=== PATIENT | female | born 1945 | race Caucasian/White ===

== ENCOUNTER 2016-04-20 12:03 | Observation (INO) | payer MEDICARE, BC ==
[~2016-04-20] VITALS: Ht 165.1 cm; Wt 60.0 kg
[~2016-04-20 12:03] MED LIST: ATEN1TAB74 PO; CALTTAB5 PO; FIORINAL2 PO; HYDR-3366 PO; LEVE500 PO; LIPI10TA PO; MULTTAB67 PO; ZOCO40TA PO
[2016-04-20 12:07] VITALS: BP 136/63; PULSE 70; RESP 24; O2SAT 98
[2016-04-20] MEDS ORDERED: MECL25CH CHEW (12:29)
[2016-04-20 12:35] VITALS: BP 147/70; PULSE 60; RESP 16; TEMP 97.7; O2SAT 100
--- NOTE | 2016-04-20 12:41 | PD ---
HPI Chief Complaint: Numbness/Tingling Time Seen by Provider: 12:30 Travel History International Travel<30 days: No Contact w/Intl Traveler<30days: No Traveled to known affect area: No History of Present Illness HPI 71-year-old female with history of migraines, SDH of unclear etiology that was drained in November of last year, here for evaluation of double vision and left arm and leg numbness. Symptoms started at around 11:15 PM while driving. Double vision lasted several minutes and has since resolved. Left arm and leg numbness has been persistent. No focal deficits or weakness. No headache. She has had a cough recently. No fevers or chills. No chest pain or dyspnea. No abdominal pain. PFSH Past Medical History Arthritis: Yes Cancer: No High Cholesterol: Yes Diabetes: No Diminished Hearing: No Glaucoma: No Hepatitis: No Hiatal Hernia: No Hypertension: No Musculoskeletal: Yes (OSTEOPENIA) Immunizations Current: Yes Migraines: Yes Thyroid Disease: No Influenza Vaccination: Yes Menopausal: Yes Tubal Ligation: Yes Past Surgical History Abdominal Surgery: Yes (APPENDECTOMY ) Appendectomy: Yes Cardiac Surgery: No Endocrine Surgery: No Eye Surgery: Yes (BILATERAL CATARACTS) Genitourinary Surgery: No Gynecologic Surgery: Yes (TUBAL LIGATION ) Pacemaker: No Thoracic Surgery: No Other Surgery: Yes (brain surgery ) Social History Alcohol Use: No Tobacco Use: No Substance Use: No Allergies-Medications (Allergen,Severity, Reaction): Coded Allergies: Codeine (Verified Allergy, Severe, VERTIGO, VOMITING, 04/20/16) Darvon (Verified Allergy, Severe, VERTIGO, 04/20/16) Morphine (Verified Allergy, Unknown, 04/20/16) Uncoded Allergies: DARVOCET (Allergy, Severe, 01/04/16) Reported Meds & Prescriptions Reported Meds & Active Scripts Active Reported Meclizine (Meclizine HCl) 25 Mg Chew 25 Mg CHEW DIRECTED PRN Fiorinal (Butalbital/Aspirin/Caffeine) 50-325-40 Mg Cap 1 Cap PO Q6HR PRN Do not exceed 6 capsules/day. Caltrate 600 (Calcium Carbonate) 1,500 Mg Tab 1 Tab PO DAILY Multiple Vitamin 1 Tab 1 Tab PO DAILY Tenormin (Atenolol) 50 Mg Tab 50 Mg PO DAILY Zocor (Simvastatin) 40 Mg Tab 20 Mg PO HS Review of Systems Except as stated in HPI: all other systems reviewed are Neg Physical Exam Narrative GENERAL: Well-developed, well-nourished, comfortable, no acute distress. Awake , alert, GCS 15. SKIN: Warm and dry. No rash. HEAD: Atraumatic. Normocephalic. EYES: Pupils equal and round. No scleral icterus. No injection or drainage. ENT: Mucous membranes pink and moist. NECK: Trachea midline. No JVD. CARDIOVASCULAR: Regular rate and rhythm. RESPIRATORY: No accessory muscle use. Clear to auscultation. Breath sounds equal bilaterally. GASTROINTESTINAL: Abdomen soft, non-tender, nondistended. MUSCULOSKELETAL: No obvious deformities. No clubbing. No cyanosis. No edema. NEUROLOGICAL: Awake and alert. No obvious cranial nerve deficits. Motor grossly within normal limits. Normal speech. No focal deficits. Normal finger- nose-finger test bilaterally. No pronator drift. PSYCHIATRIC: Appropriate mood and affect; insight and judgment normal. Data Data Last Documented VS Vital Signs Date Time Temp Pulse Resp B/P Pulse Ox O2 Delivery O2 Flow Rate FiO2 04/20/16 12:35 97.7 60 16 147/70 100 Room Air Orders Electrocardiogram (04/20/16 12:37) Prothrombin Time / Inr (Pt) (04/20/16 12:37) Act Partial Throm Time (Ptt) (04/20/16 12:37) Complete Blood Count With Diff (04/20/16 12:37) Comprehensive Metabolic Panel (04/20/16 12:37) Urinalysis - C+S If Indicated (04/20/16 12:37) Ct Brain W/O Iv Contrast(Rout) (04/20/16 12:37) Ecg Monitoring (04/20/16 12:37) Iv Access Insert/Monitor (04/20/16 12:37) Oximetry (04/20/16 12:37) Sodium Chloride 0.9% Flush (Ns Flush) (04/20/16 12:45) Blood Glucose (04/20/16 12:45) Ckmb (Isoenzyme) Profile (04/20/16 12:52) Troponin I (04/20/16 12:52) Aspirin Ec (Ecotrin Ec) (04/20/16 14:30) Us Leg Venous Doppler (04/20/16 ) Labs Laboratory Tests Test 04/20/16 04/20/16 12:45 13:30 White Blood Count 4.4 TH/MM3 Red Blood Count 4.67 MIL/MM3 Hemoglobin 13.0 GM/DL Hematocrit 39.8 % Mean Corpuscular Volume 85.2 FL Mean Corpuscular Hemoglobin 27.9 PG Mean Corpuscular Hemoglobin 32.7 % Concent Red Cell Distribution Width 13.6 % Platelet Count 251 TH/MM3 Mean Platelet Volume 8.3 FL Neutrophils (%) (Auto) 60.4 % Lymphocytes (%) (Auto) 27.0 % Monocytes (%) (Auto) 10.2 % Eosinophils (%) (Auto) 1.6 % Basophils (%) (Auto) 0.8 % Neutrophils # (Auto) 2.6 TH/MM3 Lymphocytes # (Auto) 1.2 TH/MM3 Monocytes # (Auto) 0.4 TH/MM3 Eosinophils # (Auto) 0.1 TH/MM3 Basophils # (Auto) 0.0 TH/MM3 CBC Comment DIFF FINAL Differential Comment Prothrombin Time 11.2 SEC Prothromb Time International 1.0 RATIO Ratio Activated Partial 22.9 SEC Thromboplast Time Sodium Level 138 MEQ/L Potassium Level 3.8 MEQ/L Chloride Level 103 MEQ/L Carbon Dioxide Level 24.2 MEQ/L Anion Gap 11 MEQ/L Blood Urea Nitrogen 16 MG/DL Creatinine 1.01 MG/DL Estimat Glomerular Filtration 54 ML/MIN Rate Random Glucose 128 MG/DL Calcium Level 8.9 MG/DL Total Bilirubin 0.6 MG/DL Aspartate Amino Transf 18 U/L (AST/SGOT) Alanine Aminotransferase 41 U/L (ALT/SGPT) Alkaline Phosphatase 60 U/L Total Creatine Kinase 66 U/L Troponin I LESS THAN 0.02 NG/ML Total Protein 7.0 GM/DL Albumin 4.0 GM/DL Urine Color YELLOW Urine Turbidity CLEAR Urine pH 8.5 Urine Specific [place] 1.019 Urine Protein TRACE mg/dL Urine Glucose (UA) NEG mg/dL Urine Ketones 40 mg/dL Urine Occult Blood NEG Urine Nitrite NEG Urine Bilirubin NEG Urine Urobilinogen LESS THAN 2.0 MG/DL Urine Leukocyte Esterase TRACE Urine RBC 1 /hpf Urine WBC 1 /hpf Urine Squamous Epithelial 1 /hpf Cells Microscopic Urinalysis Comment CULT NOT INDICATED MDM Medical Decision Making Medical Screen Exam Complete: Yes Emergency Medical Condition: Yes Medical Record Reviewed: Yes Interpretation(s) EKG: Sinus, rate 59, normal axis, normal intervals, slight ST depressions in inferior, anterior, and lateral leads. No ST segment elevations. Differential Diagnosis CVA, ICH, electrolyte abnormality, UTI Narrative Course Vital signs reviewed. CBC is unremarkable. CMP is remarkable for creatinine 1.01, GFR 54, otherwise unremarkable. Cardiac enzymes are negative. UA shows 40 ketones, otherwise within normal limits, not suggestive of UTI. CT head: Prior right calvarial surgery. Intracranial lesion normal. Patient was given a dose of aspirin after CT head findings resulted. She was made aware of all findings. She is still having some numbness in her left arm and leg. Again she no longer has double vision. There is no focal deficits or focal weakness on exam. After she was made aware of all findings she was complaining of pain behind her left knee. Exam shows mild tenderness behind left knee. No calf tenderness or swelling. No thigh tenderness or swelling. All compartments in the left lower extremity are supple. No history of DVT or PE. I told the patient I will order a lower extremity ultrasound to make sure she does not have a DVT. The patient will be admitted for further treatment and evaluation of paresthesias/episode of blurry vision/possible TIA/CVA. Case discussed with hospitalist Dr. Bell who will admit the patient to his service. Diagnosis Primary Impression: Paresthesias Admitting Information Admitting Physician Requests: Leo Baxter MD Apr 20, 2016 12:41
[2016-04-20] MEDS ORDERED: SODIUM CHLORIDE 0.9% FLUSH 5 ML FLUSH IVF PRN ×2 (12:45→14:45)
[2016-04-20 13:00] LABS: AUTOMATED NEUTROPHIL # 2.6 TH/MM3 (1.8-7.7); BASOPHIL % 0.8 % (0.0-2.0); EOSINOPHIL # 0.1 TH/MM3 (0-0.4); EOSINOPHIL % 1.6 % (0.0-4.0); HEMATOCRIT 39.8 % (35.0-46.0); HEMO FLAGS DIFF FINAL; LYMPHOCYTE # 1.2 TH/MM3 (1.0-4.8); MEAN CELL VOLUME 85.2 FL (80.0-100.0); MEAN CORPUSCULAR HEMOGLOBIN 27.9 PG (27.0-34.0); MEAN CORPUSCULAR HGB CONC 32.7 % (32.0-36.0); MONO % 10.2 % (0.0-8.0); NEUT % 60.4 % (16.0-70.0); PLATELET COUNT 251 TH/MM3 (150-450); RED BLOOD COUNT 4.67 MIL/MM3 (4.00-5.30); RED CELL DISTRIBUTION WIDTH 13.6 % (11.6-17.2); WHITE BLOOD COUNT 4.4 TH/MM3 (4.0-11.0)
[2016-04-20 13:08] LABS: APTT (PATIENT) 22.9 SEC (24.3-30.1); PROTHROMBIN TIME - PATIENT 11.2 SEC (9.8-11.6)
[2016-04-20 13:14] LABS: ALT (GPT) 41 U/L (10-53); ANION GAP 11 MEQ/L (5-15); AST (GOT) 18 U/L (15-37); BICARBONATE 24.2 MEQ/L (21.0-32.0); BLOOD UREA NITROGEN 16 MG/DL (7-18); CHLORIDE 103 MEQ/L (98-107); GLOMERULAR FILTRATION RATE 54 ML/MIN (>89); POTASSIUM 3.8 MEQ/L (3.5-5.1); SODIUM (NA) 138 MEQ/L (136-145)
[2016-04-20 13:16] LABS: ALKALINE PHOSPHATASE 60 U/L (45-117); TOTAL BILIRUBIN ADULT 0.6 MG/DL (0.2-1.0)
[2016-04-20 13:48] LABS: BLOOD, URINE NEG (NEG); GLUCOSE,URINE NEG (NEG); KETONE, URINE 40 mg/dL (NEG); NITRITE,URINE NEG (NEG); PH, URINE 8.5 (5.0-8.5); SQUAMOUS EPITHELIAL CELL URINE 1 /hpf (0-5); URINE COLOR YELLOW (YELLW/STRAW)
[2016-04-20 13:49] LABS: COMMENT (UR) CULT NOT INDICATED; CULTURE IF INDICATED CULT NOT INDICATED
--- NOTE | 2016-04-20 14:07 | RADRPT ---
EXAM DATE/TIME: 04/20/2016 13:36 [facility] COMPARISON: CT BRAIN W/O CONTRAST, December 26, 2015, 4:43. INDICATIONS : Temporary visual disturbances. Numbness and tingling left upper and lower extremities. RADIATION DOSE: 29.45 CTDIvol (mGy) MEDICAL HISTORY : Brain hemorrhage. SURGICAL HISTORY : Craniotomy. Appendectomy.Tubal ligation. ENCOUNTER: Initial ACUITY: 1 day PAIN SCALE: 6/10 LOCATION: cranial TECHNIQUE: Multiple contiguous axial images were obtained of the head. Using automated exposure control and adj ustment of the mA and/or kV according to patient size, radiation dose was kept as low as reasonably a chievable to obtain optimal diagnostic quality images. FINDINGS: CEREBRUM: The ventricles are normal for age. No evidence of midline shift, mass lesion, hemorrhage or acute in farction. No extra-axial fluid collections are seen. POSTERIOR FOSSA: The cerebellum and brainstem are intact. The 4th ventricle is midline. The cerebellopontine angle i s unremarkable. EXTRACRANIAL: The visualized portion of the orbits is intact. SKULL: The calvaria is intact with evidence of right cranial surgery defect with removal of superficial stap les clips and subdural drain.. No evidence of skull fracture. CONCLUSION: Prior right calvarial surgery. Intracranially normal. Allen Torre MD on April 20, 2016 at 14:04 Board Certified Radiologist. This report was verified electronically.
[2016-04-20 14:20] LABS: CREATINE KINASE 66 U/L (26-192)
[2016-04-20] MEDS ORDERED: ASPIRIN EC 325 MG TABEC PO ONE (14:30)
[2016-04-20] MEDS ORDERED: ASPIRIN 325 MG/CAFFEINE 40 MG/BUTALBITAL 50 MG CAP PO PRN (14:30)
[2016-04-20] MEDS ORDERED: GLUCAGON 1 MG/ML VIAL IM/SQ PRN (14:45)
[2016-04-20] MEDS ORDERED: DEXTROSE 50% IN WATER 50 ML VIAL(D50) IV PUSH PRN (14:45)
[2016-04-20] MEDS ORDERED: ENALAPRILAT 1.25 MG/ML VIAL IV PRN (14:45)
--- NOTE | 2016-04-20 15:21 | RADRPT ---
EXAM DATE/TIME: 04/20/2016 14:41 [facility] COMPARISON: No previous studies available for comparison. INDICATIONS : Left leg pain. MEDICAL HISTORY : Hypercholesterolemia. Migraine. Osteopenia. Arthritis. SURGICAL HISTORY : Appendectomy. Tubal ligation. Cataract removal. Brain surgery. ENCOUNTER: Initial ACUITY: 2 weeks PAIN SCORE: 3/10 LOCATION: Left leg. TECHNIQUE: Venous ultrasound of the leg was performed from the inguinal ligament to the proximal calf. Real-time, color Doppler and spectral tracing, compression and augmentation techniques were us ed. FINDINGS: There is normal compressibility of the deep venous system from the inguinal region to the proximal ca lf. No echogenic clot is seen in the lumen of the common femoral, femoral, popliteal, and posterior tibial veins. There is a normal response of the venous system to proximal and distal augmentation an d respiration. CONCLUSION: Negative examination with no evidence DVT Allen Torre MD on April 20, 2016 at 15:19 Board Certified Radiologist. This report was verified electronically.
[2016-04-20] MEDS: INSULIN ASPART SUPPLEMENTAL SCALE SQ SCH ×2 (16:00→21:00)
--- NOTE | 2016-04-20 16:06 | HHI.HP ---
[facility] Primary Care Physician Kamilah Schroeder MD Admission Diagnosis paresthesias, rule out CVA Diagnoses: (1) TIA (transient ischemic attack) Diagnosis: Principal Chief Complaint: left sided numbness Travel History International Travel<30 Days: No Contact w/Intl Traveler <30 Da: No Traveled to Known Affected Are: No History of Present Illness patient is a 71 y/o female with history of dyslipidemia, subdural hematoma- s/p craniotomy a few months ago, presented to ER with left-sided numbness and double vision. she says that she was driving earlier this morning when she started to have numbness and tingling of the left upper and lower extremities along with double vision. double vision lasted for two minutes and the extremity numbness resolved after two hours. in fact she denied any symptoms at the time of my evaluation. she says that she had some nausea and vomited once at the time. she denies any chest pain or sob and doesn't recall any similar symptoms in the past. Review of Systems Constitutional: DENIES: Fever, Weight loss, Chills, Night Sweats Eyes: COMPLAINS OF: Double Vision, DENIES: Blurred vision, Diplopia, Vision loss Ears, nose, mouth, throat: DENIES: Tinnitus, Vertigo, Throat pain, Epistaxis Respiratory: DENIES: Apneas, Cough, Snoring, Wheezing, Hemoptysis, Sputum production, Shortness of breath Cardiovascular: DENIES: Chest pain, Palpitations, Syncope, Dyspnea on Exertion , PND, Lower Extremity Edema, Orthopnea, Claudication Gastrointestinal: DENIES: Abdominal pain, Black stools, Bloody stools, Constipation, Diarrhea, Nausea, Vomiting, Difficulty Swallowing, Anorexia Genitourinary: DENIES: Urinary frequency, Urgency, Hematuria, Dysuria Musculoskeletal: DENIES: Joint pain, Muscle aches, Stiffness, Joint Swelling Integumentary: DENIES: Rash Neurologic: COMPLAINS OF: Paresthesias, DENIES: Abnormal gait, Headache, Localized weakness, Seizures, Speech Problems, Tremor, Poor Balance Psychiatric: DENIES: Anxiety, Confusion, Mood changes, Depression, Hallucinations, Agitation, Suicidal Ideation, Homicidal Ideation, Delusions Past Family Social History Past Medical History migraine headache dyslipidemia subdural hematoma Past Surgical History craniotomy cataract surgery appendectomy Reported Medications Meclizine (Meclizine HCl) 25 Mg Chew 25 Mg CHEW DIRECTED PRN Fiorinal (Butalbital/Aspirin/Caffeine) 50-325-40 Mg Cap 1 Cap PO Q6HR PRN Do not exceed 6 capsules/day. Caltrate 600 (Calcium Carbonate) 1,500 Mg Tab 1 Tab PO DAILY Multiple Vitamin 1 Tab 1 Tab PO DAILY Tenormin (Atenolol) 50 Mg Tab 50 Mg PO DAILY Zocor (Simvastatin) 40 Mg Tab 20 Mg PO HS Allergies: Coded Allergies: Codeine (Verified Allergy, Severe, VERTIGO, VOMITING, 04/20/16) Darvon (Verified Allergy, Severe, VERTIGO, 04/20/16) Morphine (Verified Allergy, Unknown, 04/20/16) Uncoded Allergies: DARVOCET (Allergy, Severe, 01/04/16) Active Ordered Medications Current Medications IV Flush (NS Flush) 2 ml UNSCH PRN IVF FLUSH AFTER USING IV ACCESS; Start 04/20 at 12:45; Stop 04/20/16 at 14:51; Status DC Aspirin (Ecotrin Ec) 325 mg ONCE ONCE PO Last administered on 04/20/16t 15:23 ; Start 04/20/16 at 14:30; Stop 04/20/16 at 14:31; Status DC Atenolol (Tenormin) 50 mg DAILY PO ; Start 04/21/16 at 09:00 Butalbital/ Aspirin/Caffeine (Fiorinal 325-40-50) 1 cap Q6HR PRN PO HEADACHE; Start 04/20/16 at 14:30 Pravastatin Sodium (Pravachol) 40 mg HS PO CM; Start 04/20/16 at 21:00 IV Flush (NS Flush) 2 ml BID IVF ; Start 04/20/16 at 21:00 IV Flush (NS Flush) 2 ml UNSCH PRN IVF FLUSH AFTER USING IV ACCESS; Start 04/20 at 14:45 Enalaprilat (Vasotec Inj) 1.25 mg Q4H PRN IV For SBP >/= 180 or DBP >/= 100; Start 04/20/16 at 14:45 Insulin Aspart (NovoLOG SUPPLEMENTAL SCALE) 1 ACHS SLIDING SCALE SQ ; Start at 16:00 Dextrose (D50w (Vial) Inj) 25 ml UNSCH PRN IV PUSH HYPOGLYCEMIA-SEE COMMENTS; Start 04/20/16 at 14:45 Glucagon (Glucagon Inj) 1 mg UNSCH PRN IM/SQ HYPOGLYCEMIA-SEE COMMENTS; Start 04/20/16 at 14:45 Family History heart attack in father. Social History no smoking or drinking. Physical Exam Vital Signs Vital Signs Date Time Temp Pulse Resp B/P Pulse Ox O2 Delivery O2 Flow Rate FiO2 04/20/16 12:35 97.7 60 16 147/70 100 Room Air 04/20/16 12:07 70 24 136/63 98 Room Air Physical Exam GENERAL: This is a well-nourished, well-developed patient, in no apparent distress. SKIN: No rashes, ecchymoses or lesions. Cool and dry. HEAD: Atraumatic. Normocephalic. No temporal or scalp tenderness. EYES: Pupils equal round and reactive. Extraocular motions intact. No scleral icterus. No injection or drainage. ENT: Nose without bleeding, purulent drainage or septal hematoma. Throat without erythema, tonsillar hypertrophy or exudate. Uvula midline. Airway patent. NECK: Trachea midline. No JVD or lymphadenopathy. Supple, nontender, no meningeal signs. CARDIOVASCULAR: Regular rate and rhythm without murmurs, gallops, or rubs. RESPIRATORY: Clear to auscultation. Breath sounds equal bilaterally. No wheezes , rales, or rhonchi. GASTROINTESTINAL: Abdomen soft, non-tender, nondistended. No hepato-splenomegaly , or palpable masses. No guarding. MUSCULOSKELETAL: Extremities without clubbing, cyanosis, or edema. No joint tenderness, effusion, or edema noted. No calf tenderness. Negative Homans sign bilaterally. NEUROLOGICAL: Awake and alert. Cranial nerves II through XII intact. Motor and sensory grossly within normal limits. Five out of 5 muscle strength in all muscle groups. Normal speech. Laboratory Laboratory Tests Test 04/20/16 04/20/16 12:45 13:30 White Blood Count 4.4 Red Blood Count 4.67 Hemoglobin 13.0 Hematocrit 39.8 Mean Corpuscular Volume 85.2 Mean Corpuscular Hemoglobin 27.9 Mean Corpuscular Hemoglobin 32.7 Concent Red Cell Distribution Width 13.6 Platelet Count 251 Mean Platelet Volume 8.3 Neutrophils (%) (Auto) 60.4 Lymphocytes (%) (Auto) 27.0 Monocytes (%) (Auto) 10.2 Eosinophils (%) (Auto) 1.6 Basophils (%) (Auto) 0.8 Neutrophils # (Auto) 2.6 Lymphocytes # (Auto) 1.2 Monocytes # (Auto) 0.4 Eosinophils # (Auto) 0.1 Basophils # (Auto) 0.0 CBC Comment DIFF FINAL Differential Comment Prothrombin Time 11.2 Prothromb Time International 1.0 Ratio Activated Partial 22.9 Thromboplast Time Sodium Level 138 Potassium Level 3.8 Chloride Level 103 Carbon Dioxide Level 24.2 Anion Gap 11 Blood Urea Nitrogen 16 Creatinine 1.01 Estimat Glomerular Filtration 54 Rate Random Glucose 128 Calcium Level 8.9 Total Bilirubin 0.6 Aspartate Amino Transf 18 (AST/SGOT) Alanine Aminotransferase 41 (ALT/SGPT) Alkaline Phosphatase 60 Total Creatine Kinase 66 Troponin I LESS THAN 0.02 Total Protein 7.0 Albumin 4.0 Urine Color YELLOW Urine Turbidity CLEAR Urine pH 8.5 Urine Specific [place] 1.019 Urine Protein TRACE Urine Glucose (UA) NEG Urine Ketones 40 Urine Occult Blood NEG Urine Nitrite NEG Urine Bilirubin NEG Urine Urobilinogen LESS THAN 2.0 Urine Leukocyte Esterase TRACE Urine RBC 1 Urine WBC 1 Urine Squamous Epithelial 1 Cells Microscopic Urinalysis Comment CULT NOT INDICATED Result Diagram: 04/20/16 1245 04/20/16 1245 Imaging Last Impressions Head CT 04/20/16 1237 Signed Impressions: Service Date/Time: Wednesday, April 20, 2016 13:36 - CONCLUSION: Prior right calvarial surgery. Intracranially normal. Allen Torre MD Lower Extremity Ultrasound 04/20/16 0000 Signed Impressions: Service Date/Time: Wednesday, April 20, 2016 14:41 - CONCLUSION: Negative examination with no evidence DVT Allen Torre MD EKG; sinus rhythm Assessment and Plan Assessment and Plan A/P - TIA continue aspirin and statin- neuro-checks- will obtain MRI of the brain and carotid doppler neurology consulted -dyslipidemia/migraine headaches- resume home meds -DVT prophylaxis with SCD's Discussed Condition With the patient and her family. Problem Qualifiers (1) TIA (transient ischemic attack): Qualified Code: G45.9 - Transient cerebral ischemia, unspecified type Nick Walker MD Apr 20, 2016 16:06
[2016-04-20 17:01] LABS: HEMOGLOBIN A1a 1.1 %; HEMOGLOBIN A1b 1.7 %; HEMOGLOBIN Ao 85.6 %; HEMOGLOBIN LA1C 2.2 %; HEMOGLOBIN P3 3.7 %
--- NOTE | 2016-04-20 17:37 | MB ---
cc: DAMIÁN VIGIL M.D. DATE OF CONSULTATION: 04/20/2016 REASON FOR CONSULTATION: HISTORY OF PRESENT ILLNESS: The patient is a pleasant 71 year-old woman with a recent history of subdural hematoma, right-sided, status post craniotomy, evacuation a few months ago here at [facility] with a history of hyperlipidemia, was driving home around 11 o'clock and suddenly developed double vision that resulted with one eye closed and some numbness. She decided to close one eye, drove to a friend's house that was nearer than hers and started having some numbness in the arm and leg. Her friend stated that she was hyperventilating a bit, labored breathing and she became nauseated and subsequently vomited. By the time she reached the hospital, the symptoms had subsided. She denies any headache, although she does have a history of migraines, the diplopia is gone, numbness is gone, no weakness, no chest pain, shortness of breath, nausea or vomiting. PAST MEDICAL HISTORY: As stated: Recent subdural right-sided hematoma evacuation. Dyslipidemia. Migraine headaches PAST SURGICAL HISTORY: 1. Craniotomy. 2. Cataracts. 3. Appendectomy. HOME MEDICATIONS: 1. Meclizine. 2. Fiorinal. 3. Caltrate. 4. Multivitamin. 5. Tenormin. 6. Zocor. ALLERGIES CODEINE. DARVON MORPHINE DARVOCET PHYSICAL EXAMINATION: Vitals: Temperature is 97.7, pulse 60, respiratory rate 16, blood pressure 147/70 sating at 100% on room air. Neck: Supple. No appreciable bruits. Heart: Regular. No murmurs, rubs or gallops. Lungs: Clear. She is awake, alert, oriented and fluent. Pupils reactive. Visual palacio are full, face symmetrical. Tongue is midline. No facial dysesthesias to light touch. Motor: No drift or leg lag. [id number], no past-pointing, left toe is neutral, right toe is downgoing. DTRs are 2+ symmetrical. Gait is withheld at this time, she is at bedrest. CT of the head did not show anything acute, it shows the old right surgical site for the craniotomy. LABORATORY DATA Urine is unremarkable. Chemistries: Creatinine 1.01, GFR 54, glucose 128, CK 66, hemoglobin A1c is pending. Coag panels, PTT is 22.9, CBC is unremarkable. IMPRESSION This is a 71-year-old woman with diplopia and left-sided numbness, may be secondary to TIA, however, certainly her subdural was on the right side, may have been a mild seizure. Recommend a TIA workup. Will get an MRI of the brain, MRA [place] and carotid ultrasound. Outpatient Holter monitor to rule out any dysrhythmia. If no contraindications, I think baby aspirin can be initiated, monitor her vital signs, avoiding accelerated hypertension. I do not want her blood pressure at this point going above 200, because of history of bleed, but it was subdural. Will continue current recommendations and current care. Her NIH at this point is 0. If stable, and workup is negative, discharge planning likely in 24 hours. MD JAMES Vegas/OBEY /4:39 PM /5:25 PM
--- NOTE | 2016-04-20 18:22 | RADRPT ---
EXAM DATE/TIME: 04/20/2016 17:14 [facility] COMPARISON: No previous studies available for comparison. INDICATIONS : Transient ischemic attack. MEDICAL HISTORY : Hypercholesterolemia. Arthritis. Migraines. Osteopenia. SURGICAL HISTORY : Appendectomy. Tubal ligation. Bilateral cataract surgery. Brain surgery. ENCOUNTER: Initial ACUITY: 1 day PAIN SCORE: 0/10 LOCATION: Bilateral neck PEAK SYSTOLIC VELOCITIES (cm/sec): ICA/CCA RATIO: Right: 1.9 Left: 1.2 ICA: Right: 133 Left: 88 CCA: Right: 69 Left: 75 ECA: Right: 78 Left: 52 VERTEBRAL: Right: 78 antegrade Left: 51 antegrade Elevated flow velocities and ICA/CCA ratios have been found to correlate with increased degrees of vessel stenosis, calculated as percentage of diameter relative to a normal segment of distal ICA/CCA FINDINGS: RIGHT CAROTID: No significant stenosis is visualized. Mild plaque is present. The waveforms are within normal limits . LEFT CAROTID: No significant stenosis is visualized. Mild plaque is present. The waveforms are within normal limits . VERTEBRAL ARTERIES: Antegrade flow is seen in both vertebral arteries. MISCELLANEOUS: None. CONCLUSION: Mild bilateral plaquing with mild elevation of the right internal carotid artery and ratio consistent with a less than 50% diameter stenosis. Ferdinand Greer MD on April 20, 2016 at 18:18 Board Certified Radiologist. This report was verified electronically.
--- NOTE | 2016-04-20 19:08 | RADRPT ---
EXAM DATE/TIME: 04/20/2016 18:31 [facility] COMPARISON: CT BRAIN W/O CONTRAST, April 20, 2016, 13:36. INDICATIONS : Visual changes and numbness in left extremities MEDICAL HISTORY : Cerebrovascular disease. Migraines SURGICAL HISTORY : Craniotomy. Appendectomy. ENCOUNTER: Initial ACUITY: 1 day PAIN SCORE: 0/10 LOCATION: cranial Please note a normal MRA of the brain does not entirely exclude the possibility of a small aneurysm, nor the possibility of distal intracranial vessel disease. TECHNIQUE: 3D time of flight MRA was performed. Source images, multiplanar STS MIP, and 3D volume MIP reconstru ctions were reviewed. FINDINGS: There is excellent visualization of the major intracranial arteries out to the second-order branch ve ssels. There is no evidence for aneurysm, vessel truncation or stenosis, and no evidence for vascula r malformation. CONCLUSION: Unremarkable examination. Ferdinand Greer MD on April 20, 2016 at 19:04 Board Certified Radiologist. This report was verified electronically.
--- NOTE | 2016-04-20 19:18 | RADRPT ---
EXAM DATE/TIME: 04/20/2016 18:31 [place] COMPARISON: CT BRAIN W/O CONTRAST, April 20, 2016, 13:36. CT BRAIN W/O CONTRAST, December 26, 2015, 4:43. INDICATIONS : Visual changes and numbness in left extremities history of subdural hematoma. MEDICAL HISTORY : Cerebrovascular disease. Migraines SURGICAL HISTORY : Craniotomy. Appendectomy. ENCOUNTER: Initial ACUITY: 1 day PAIN SCORE: 0/10 LOCATION: cranial TECHNIQUE: Multiplanar, multisequence MRI of the brain was performed without contrast. FINDINGS: CEREBRUM: The ventricles are normal for age. No evidence of midline shift, mass lesion, hemorrhage or acute in farction. No extraaxial fluid collections are seen. The pituitary gland and suprasellar cistern are normal in configuration. WHITE MATTER: On the flair weighted images there are small scattered foci of increased signal noted characteristic of chronic small vessel ischemic change. POSTERIOR FOSSA: The cerebellum and brainstem are intact. The 4th ventricle is midline. The cerebellopontine angle is unremarkable. The cerebellar tonsils are normal in position. DIFFUSION IMAGING: No focal areas of restricted diffusion are seen. No evidence of acute infarction. EXTRACRANIAL: The visualized portions of the orbits and paranasal sinuses are unremarkable. Postsurgical changes ar e noted status post right parietal craniotomy. CONCLUSION: 1. Mild postsurgical changes status post right parietal craniotomy. 2. Mild chronic small vessel ischemic change. 3. No acute hemorrhage, mass or infarction. Ferdinand Greer MD on April 20, 2016 at 19:14 Board Certified Radiologist. This report was verified electronically.
[2016-04-20] MEDS ORDERED: PRAVASTATIN SOD 40 MG TAB PO SCH (21:00)
[2016-04-20 21:22] VITALS: BP 148/67; PULSE 68; RESP 18; TEMP 98.3; O2SAT 99
[2016-04-20] MEDS: SODIUM CHLORIDE 0.9% FLUSH 5 ML FLUSH IVF SCH (22:11)
[2016-04-21 04:26] VITALS: PULSE 74
[2016-04-21 04:55] VITALS: BP 144/79; PULSE 70; RESP 18; TEMP 98.1; O2SAT 97
[2016-04-21] MEDS: INSULIN ASPART SUPPLEMENTAL SCALE SQ SCH ×2 (06:08→11:00)
[2016-04-21 08:07] VITALS: PULSE 68
[2016-04-21] MEDS: SODIUM CHLORIDE 0.9% FLUSH 5 ML FLUSH IVF SCH (08:07)
[2016-04-21 08:16] VITALS: BP 127/61; PULSE 67; RESP 18; TEMP 96.1; O2SAT 99
[2016-04-21 08:26] LABS: HDL CHOLESTEROL 45.2 MG/DL (40.0-60.0)
[2016-04-21] MEDS ORDERED: ASPIRIN 81 MG CHEW TAB CHEW SCH (09:00)
[2016-04-21] MEDS ORDERED: ATENOLOL 50 MG TAB PO SCH (09:00)
[2016-04-21] MEDS ORDERED: INFLUENZA VIRUS VACCINE (QUADRIVALENT) 0.5 ML SYR IM ONE (10:00)
[2016-04-21 11:45] VITALS: BP_SYST 112; BP_SYST 139; BP_DIAS 56; BP_DIAS 63; PULSE 60; RESP 18; TEMP 97.8; O2SAT 95
--- NOTE | 2016-04-21 12:31 | EC ---
Study Study Date:04/21/2016 STUDY CONCLUSIONS SUMMARY - Left ventricle: The cavity size was normal. Wall thickness was increased in a pattern of mild LVH. Systolic function was normal. The estimated ejection fraction was in the range of 55% to 60%. Wall motion was normal; there were no regional wall motion abnormalities. - Aortic valve: Mild regurgitation. - Mitral valve: Mild regurgitation. If LV function is below 40, please consider prescribing an ACEI or ARB or document rationale for non-use. PROCEDURE DATA STUDY STATUS: Elective. Procedure: Transthoracic echocardiography. Image quality was good. Scanning was performed from the parasternal, apical, and subcostal acoustic windows. Study completion: The patient tolerated the procedure well. Transthoracic echocardiography. M-mode, complete 2D, complete spectral Doppler, and color Doppler. Patient status: Inpatient. CARDIAC ANATOMY LEFT VENTRICLE: The cavity size was normal. Wall thickness was increased in a pattern of mild LVH. Systolic function was normal. The estimated ejection fraction was in the range of 55% to 60%. Wall motion was normal; there were no regional wall motion abnormalities. AORTIC VALVE: Trileaflet; normal thickness leaflets. Doppler: Transvalvular velocity was within the normal range. There was no stenosis. Mild regurgitation. AORTA: Aortic root: The aortic root was normal in size. MITRAL VALVE: Structurally normal valve. Doppler: Transvalvular velocity was within the normal range. There was no evidence for stenosis. Mild regurgitation. Peak gradient: 2mm Hg (D). LEFT ATRIUM: The atrium was normal in size. RIGHT VENTRICLE: The cavity size was normal. Wall thickness was normal. PULMONIC VALVE: Doppler: Transvalvular velocity was within the normal range. There was no evidence for stenosis. No regurgitation. TRICUSPID VALVE: Structurally normal valve. Doppler: Transvalvular velocity was within the normal range. No regurgitation. PULMONARY ARTERY: The main pulmonary artery was normal-sized. Systolic pressure was within the normal range. RIGHT ATRIUM: The atrium was normal in size. PERICARDIUM: There was no pericardial effusion. SYSTEMIC VEINS: Inferior vena cava: The vessel was normal in size. BASIC MEASUREMENTS ADULT Normal Left ventricle LV internal dimension, ED, chordal level, 45.5 mm 43-52 PLAX LV internal dimension, ES, chordal level, 34.4 mm 23-38 PLAX Fractional shortening, chordal level, PLAX *24 % >29 LV posterior wall thickness, ED 6.81 mm IVS/LVPW ratio, ED *1.35 <1.3 Ventricular septum Septal thickness, ED 9.18 mm Aortic valve Leaflet separation 19 mm 15-26 Left atrium Anterior-posterior dimension 24 mm Right ventricle RV internal dimension, ED, PLAX 20.7 mm 19-38 BASIC MEASUREMENTS ADULT Normal Aortic valve Leaflet separation 19 mm 15-26 Aorta Root diameter, ED 35 mm 20-37 DOPPLER MEASUREMENTS ADULT Normal Main pulmonary artery Pressure, S 25 mm Hg =30 Mitral valve Peak E-wave velocity 71.1 cm/s Peak A-wave velocity 60.2 cm/s Peak gradient, D 2 mm Hg Peak E/A ratio 1.2 Tricuspid valve Regurgitant peak velocity 224 cm/s Peak RV-RA gradient, S 20 mm Hg Maximal regurgitant velocity 224 cm/s Systemic veins Estimated CVP 5 mm Hg Right ventricle RV pressure, S 25 mm Hg <30 LEGEND: Mean values are shown as u=mean value. Asterisk (*) santizo values outside specified normal range. Prepared and signed by Juan Krishna [id number]
[2016-04-21] MEDS ORDERED: Aspirin Chew CHEW (14:27)
--- NOTE | 2016-04-21 14:28 | HHI.DCPOC ---
Discharge Care Plan Diagnosis: (1) TIA (transient ischemic attack) Goals to Promote Your Health * To prevent worsening of your condition and complications * To maintain your health at the optimal level Directions to Meet Your Goals Take your medications as prescribed Follow your dietary instruction Follow activity as directed Keep your appointments as scheduled Take your immunizations and boosters as scheduled If your symptoms worsen call your PCP, if no PCP go to Urgent Care Center or Emergency Room Smoking is Dangerous to Your Health. Avoid second hand smoke Call the 24-hour hour crisis hotline for domestic abuse at Olvin Bell MD Apr 21, 2016 14:28
--- NOTE | 2016-04-21 14:29 | HHI.PR ---
Subjective Remarks Patient states she is feeling great. No more neuro symptoms. Anxious to go home. Objective Vitals Vital Signs Date Time Temp Pulse Resp B/P Pulse Ox O2 Delivery O2 Flow Rate FiO2 04/21/16 11:45 97.8 60 18 139/63 95 140/65 112/56 04/21/16 08:16 96.1 67 18 127/61 99 04/21/16 08:07 68 04/21/16 04:55 98.1 70 18 144/79 97 04/21/16 04:26 74 04/20/16 21:22 98.3 68 18 148/67 99 I/O 04/20/16 04/20/16 04/20/16 04/21/16 04/21/16 04/21/16 07:00 15:00 23:00 07:00 15:00 23:00 Intake Total 10 ml Balance 10 ml Intake Oral 10 ml # Voids 1 Result Diagram: 04/20/16 1245 04/20/16 1245 Imaging Last Impressions Head CT 04/20/16 1237 Signed Impressions: Service Date/Time: Wednesday, April 20, 2016 13:36 - CONCLUSION: Prior right calvarial surgery. Intracranially normal. Allen Torre MD Lower Extremity Ultrasound 04/20/16 0000 Signed Impressions: Service Date/Time: Wednesday, April 20, 2016 14:41 - CONCLUSION: Negative examination with no evidence DVT Allen Torre MD Head Magnetic Resonance Angiography 04/20/16 0000 Signed Impressions: Service Date/Time: Wednesday, April 20, 2016 18:31 - CONCLUSION: Unremarkable examination. Ferdinand Greer MD Carotid Artery Ultrasound 04/20/16 0000 Signed Impressions: Service Date/Time: Wednesday, April 20, 2016 17:14 - CONCLUSION: Mild bilateral plaquing with mild elevation of the right internal carotid artery and ratio consistent with a less than 50%% diameter stenosis. Ferdinand Greer MD Brain MRI 04/20/16 0000 Signed Impressions: Service Date/Time: Wednesday, April 20, 2016 18:31 - CONCLUSION: 1. Mild postsurgical changes status post right parietal craniotomy. 2. Mild chronic small vessel ischemic change. 3. No acute hemorrhage, mass or infarction. Ferdinand Greer MD Objective Remarks GENERAL: This is a well-nourished, well-developed patient, in no apparent distress. CARDIOVASCULAR: Normal rate and regular rhythm without murmurs, gallops, or rubs. RESPIRATORY: Good respiratory efforts. Breath sounds equal and clear to auscultation bilaterally. GASTROINTESTINAL: Abdomen soft, non-tender, non-distended. Normal active bowel sounds MUSCULOSKELETAL: Extremities without cyanosis, or edema. NEURO: Alert & Oriented x4 to person, place, time, situation. Moves all ext x4 PSYCH: Appropriate mood and affect. A/P Problem List: (1) TIA (transient ischemic attack) ICD Code: G45.9 Status: Acute Assessment and Plan 71-year-old female admitted with left-sided numbness and double vision. The patient's symptoms resolved. She was evaluated by neurology and underwent workup for TIA. Her workup is unremarkable including MRI, MRA, carotid ultrasound. She has EEG pending. Recommendation was to start the patient on aspirin. Her symptoms completely resolved. She is discharge in good condition to follow up outpatient. She will resume her chronic medications for her other chronic conditions. Discharge home in good condition Follow-up with PCP and neurology Medications per med rec Activity: regular as tolerated Problem Qualifiers (1) TIA (transient ischemic attack): Qualified Code: G45.9 - Transient cerebral ischemia, unspecified type Olvin Bell MD Apr 21, 2016 14:29
--- NOTE | 2016-04-21 18:17 | EKG ---
Date Performed: 04/20/2016 Time Performed: 12:48:16 PTAGE: 71 years EKG: SINUS BRADYCARDIA MODERATE ST DEPRESSION When compared to previous tracing, sinus rate is s lower. ABNORMAL ECG PREVIOUS TRACING : 12/25/2015 22.07 DOCTOR: Rk Lee Interpretating Date/Time 04/21/2016 18:17:04
--- NOTE | 2016-04-22 07:23 | MG ---
cc: NATHALY CORBETT M.D. Lab No: [id number]____ Date: 04/21/2016 Age: 71 Sex: F Race: __ REFERRING PHYSICIAN Dr. Phelps INDICATIONS An EEG was obtained on this 71-year-old patient being evaluated for encephalopathy, right craniotomy and subdurals. DESCRIPTION The patient is awake and asleep. The EEG shows a lot of beta rhythms with some associated sharp discharges on the right hemisphere maximum frontal parietal. There is a little bit of higher amplitude rhythms on the right. These patterns likely correlates with the discussed craniotomy on the right. There are some driving responses bilaterally. INTERPRETATION Focal right frontal parietal changes probably represent a breach rhythm due to the right parietal craniotomy instead of being an epileptiform abnormality. Otherwise the EEG is benign. MD JADYN Turcios/SRINATH /8:14 PM /7:20 AM
--- NOTE | 2016-04-22 21:14 | HM ---
Date Performed: 04/21/2016 Time Performed: 11:30:00 HOOKUP DATE: 04/21/16 11:30:00 AM Mel ANALYSIS START TIME: 04/21/2016 11:35:00 AM ANALYSIS END TIME: 04/22/2016 11:20:04 AM PATIENT AGE: 71 PATIENT HEIGHT: 65 PATIENT WEIGHT: 132 DRUG LIST PATIENT DIAGNOSIS: POSSIBLE CVA TEST NARRATIVE: The patient's average heart rate was 67 BPM. Heart rates greater than 120 B PM were noted < 1% of the time. No episodes of bradycardia were noted. No pauses exceeding 2.0 s econds were noted. 5 ventricular ectopics, which represented < 1% of the total beat count, were n oted. The highest ventricular ectopic frequency occurred from 02:00 AM to 03:00 AM Fri. During this time 3 VE(s) occurred. Ventricular ectopics were observed as 5 isolated beat(s) only. No couplets or runs were noted. 112 supraventricular ectopics, which represented < 1% of the total beat count , were noted. The highest supraventricular ectopic frequency occurred from 06:00 PM to 07:00 PM Mel. During this time 57 SVE(s) occurred. Multiple episodes of ST depression (defined as -1.0 mm or more) were noted in channel 1. The maximum depression of -1.4 mm occurred at 12:44:33 PM Mel. Mult iple episodes of ST depression (defined as -1.0 mm or more) were noted in channel 2. The maximum de pression of -1.2 mm occurred at 12:07:22 PM Mel. No episodes of ST depression (defined as -1.0 mm or more) were noted in channel 3. TEST INTERPRETATION: 1. Predominant underlying rhythm is sinus with occasional PAC and PVC 2. Pa roxysmal AFIB 3. No pauses of greater than 2 sec 4. No cardiac symptoms noted during the recorded mariano e interval Signed by : Coleman Mcguire
== END 2016-04-21 16:25 | disposition home or self-care (01) ==
LOC: NEPC 12:03 → NEDA 14:32 → NEPGCP 20:20
PROVIDERS: ADMIT Family Medicine; ATTEND Family Medicine
DX: G45.9 Transient cerebral ischemic attack, unspecified (principal); E78.5 Hyperlipidemia, unspecified; E78.00 Pure hypercholesterolemia, unspecified; G43.909 Migraine, unspecified, not intractable, without status migrainosus; M85.80 Other specified disorders of bone density and structure, unspecified site; R94.31 Abnormal electrocardiogram [ECG] [EKG]; R00.1 Bradycardia, unspecified; Z79.899 Other long term (current) drug therapy
CPT/HCPCS: 70450; 70544; 70551; 80053; 80061; 81001; 82550; 82948; 83036; 84484; 85025; 85610; 85730; 93005; 93225; 93226; 93306; 93880; 93971; 95819; 99285; G0378

== ENCOUNTER → 2016-06-20 | Outpatient (CLI) | payer MEDICARE, BC ==
[~2016-06-20] MED LIST changes: +Aspirin Chew CHEW; -HYDR-3366 PO; -LEVE500 PO; -LIPI10TA PO; +MECL25CH CHEW
[2016-06-20 09:55] LABS: HEMATOCRIT 40.5 % (35.0-46.0); MEAN CELL VOLUME 85.5 FL (80.0-100.0); MEAN CORPUSCULAR HEMOGLOBIN 27.9 PG (27.0-34.0); MEAN CORPUSCULAR HGB CONC 32.7 % (32.0-36.0); PLATELET COUNT 225 TH/MM3 (150-450); RED BLOOD COUNT 4.74 MIL/MM3 (4.00-5.30); RED CELL DISTRIBUTION WIDTH 13.4 % (11.6-17.2); REVIEW FLAG FINAL; WHITE BLOOD COUNT 5.1 TH/MM3 (4.0-11.0)
[2016-06-20 09:57] LABS: BICARBONATE 32.8 MEQ/L (21.0-32.0); POTASSIUM 4.1 MEQ/L (3.5-5.1)
== END ==
LOC: CLAB 09:29
PROVIDERS: ATTEND Internal Medicine Interventional Cardiology
DX: G45.9 Transient cerebral ischemic attack, unspecified (principal); I48.0 Paroxysmal atrial fibrillation
CPT/HCPCS: 36415; 80048; 85027

== ENCOUNTER 2016-06-22 05:58 | Day surgery (SDC) | payer MEDICARE, BC ==
[2016-06-22] MEDS ORDERED: MUPIROCIN 2% OINT 1 APPLIC/GM SYR NASAL SCH (06:30)
[2016-06-22] MEDS ORDERED: CHLORHEXIDINE GLUCONATE 2 % 1 PACK (2 CLOTHS) TOPICAL SCH (06:30)
[2016-06-22] MEDS ORDERED: POVIDONE IODINE 5% (ANTISEPSIS KIT) 4 APPLICATIONS EACH NARE SCH (06:30)
[2016-06-22] MEDS ORDERED: MIDAZOLAM HCL 5 MG/5 ML VIAL ONE (07:07)
[2016-06-22] MEDS: ceFAZolin 2 GM PREMIX 50 ML IV SCH ×2 (07:30→08:02)
--- NOTE | 2016-06-24 13:02 | MP ---
cc: GEORGIE BRUMFIELD M.D. DATE OF SURGERY 06/22/2016 PROCEDURE PERFORMED Implantation of a loop recorder PREOPERATIVE DIAGNOSIS Stroke, paroxysmal atrial fibrillation. POSTOPERATIVE DIAGNOSIS Stroke, paroxysmal atrial fibrillation. ANESTHESIA Intravenous Versed for awake sedation with 1% Xylocaine local. COMPLICATIONS None ESTIMATED BLOOD LOSS None PROCEDURE TECHNIQUE The patient was brought to the DOC unit and following informed consent, the left parasternal area was prepped and draped in the usual sterile manner. Following 15 mL of 1% Xylocaine for local anesthesia at the left fourth intercostal space, an incision was made for placement of the [employer] LINQ loop recorder which was inserted with the delivery device. This was done without difficulty or complication. The patient tolerated the procedure well. She will be discharged to home later today when ambulatory and stable. Followup has been arranged and instructions have been given to the patient and family. DEVICE INFORMATION [employer] LINQ [id number], serial number [id number]. Sensitivity set at 35 microvolts. Telemetry monitoring appears adequate. P-waves are visualized. MD AMINA Trejo/SRINATH /7:56 AM /12:58 PM
== END 2016-06-22 08:15 | disposition home or self-care (01) ==
LOC: HDOC 05:58 → HDIC 05:59 → HDOC 08:15
PROVIDERS: ATTEND Internal Medicine Interventional Cardiology
DX: I48.0 Paroxysmal atrial fibrillation (principal); G45.9 Transient cerebral ischemic attack, unspecified
CPT/HCPCS: 33282; C1764; J0690; J2250; J3010